=== PATIENT | male | born 1970 | race Caucasian/White ===

== ENCOUNTER 2021-06-06 09:11 | Inpatient (IN) | payer OTHER ==
[2021-06-06] MEDS ORDERED: ACETAMINOPHEN 325 MG TABLET (FP) PO PRN ×2 (09:46)
[2021-06-06] MEDS ORDERED: LORazepam 1 MG TABLET PO PRN (09:46)
[2021-06-06] MEDS ORDERED: IBUPROFEN 400 MG TABLET (FP) PO PRN (09:46)
[2021-06-06] MEDS ORDERED: MAGNESIUM HYDROX 2400MG/30ML ORAL SUSPENSION 30 ML CUP PO PRN (09:46)
[2021-06-06] MEDS ORDERED: LOPERAMIDE HCL 2 MG CAPSULE PO PRN (09:46)
[2021-06-06] MEDS ORDERED: ONDANSETRON *ODT* 4 MG TABLET SL PRN (09:46)
[2021-06-06] MEDS ORDERED: METHOCARBAMOL 500 MG TABLET PO PRN (09:46)
[2021-06-06] MEDS ORDERED: NICOTINE 10 MG CARTRIDGE (INHALER) IH PRN (09:46)
[2021-06-06] MEDS ORDERED: BISMUTH SUBSALICYLATE 524 MG/30 ML PO PRN (09:46)
[2021-06-06] MEDS ORDERED: MAGNESIUM CITRATE 300 ML BOTTLE PO PRN (09:46)
[2021-06-06] MEDS ORDERED: MAG HYDROX/AL HYDROX/SIMETH 30 ML UNIT-DOSE CUP PO PRN (09:46)
[2021-06-06] MEDS ORDERED: DICYCLOMINE HCL 10 MG CAPSULE PO PRN (09:46)
[2021-06-06] MEDS ORDERED: LORazepam 2 MG TABLET PO ONE (10:20)
[2021-06-06 10:21] VITALS: BMI 20.5
[2021-06-06] MEDS ORDERED: LORazepam 2 MG TABLET ONE (10:24)
[2021-06-06] MEDS ORDERED: ONDANSETRON *ODT* 4 MG TABLET ONE (10:38)
[2021-06-06] MEDS: PRENATAL VITAMINS W/ FOLIC ACID TABLET (FP) PO SCH (11:28)
[2021-06-06] MEDS: hydrOXYzine PAMOATE 25 MG CAPSULE (FP) PO SCH ×4 (11:29→22:48)
[2021-06-06] MEDS: NICOTINE 14 MG/24 HOURS TOPICAL PATCH TD SCH (11:39)
[2021-06-06] MEDS: LORazepam 2 MG TABLET PO SCH ×3 (11:49→22:49)
[2021-06-06 14:31] LABS: HEMATOCRIT 40.3 % (35.4-49); HEMOGLOBIN 13.5 GM/dL (11.7-16.9); MCH 36.8 pg (25.7-33.7); MCHC 33.5 g/dl (32.0-35.9); MEAN CELL VOLUME 109.8 fl (80-96); MEAN PLT VOLUME 8.6 fl (7.5-11.1); PLATELET COUNT 118 10^3/uL (134-434); RBC 3.67 M/mm3 (4.00-5.60); RDW 16.2 % (11.9-15.9); WHITE BLOOD COUNT 4.2 K/mm3 (4.0-10.0)
[2021-06-06 14:44] LABS: ALBUMIN 3.6 g/dl (3.4-5.0); CALCIUM 9.2 mg/dL (8.5-10.1)
[2021-06-06 14:45] LABS: BLOOD UREA NITROGEN 7.9 mg/dL (7-18)
[2021-06-06 14:47] LABS: CREATININE 0.9 mg/dL (0.55-1.3)
[2021-06-06 14:49] LABS: BILIRUBIN,TOTAL 1.7 mg/dL (0.2-1); TOT PROT 7.3 g/dl (6.4-8.2)
[2021-06-06] MEDS: THIAMINE HCL 100 MG TABLET (FP) PO SCH (22:48)
[2021-06-06] MEDS: PANTOPRAZOLE 20 MG TABLET PO SCH (22:48)
[2021-06-06] MEDS: levETIRAcetam 250 MG TABLET PO SCH (22:48)
[2021-06-06] MEDS: MELATONIN 5 MG TABLETS PO SCH (22:49)
[2021-06-07] MEDS: hydrOXYzine PAMOATE 25 MG CAPSULE (FP) PO SCH ×5 (05:38→22:14)
[2021-06-07] MEDS: LORazepam 2 MG TABLET PO SCH ×4 (05:38→22:14)
[2021-06-07] MEDS: PANTOPRAZOLE 20 MG TABLET PO SCH ×2 (10:06→22:14)
[2021-06-07] MEDS: PRENATAL VITAMINS W/ FOLIC ACID TABLET (FP) PO SCH (10:06)
[2021-06-07] MEDS: levETIRAcetam 250 MG TABLET PO SCH ×2 (10:06→22:14)
[2021-06-07] MEDS: NICOTINE 14 MG/24 HOURS TOPICAL PATCH TD SCH (10:07)
[2021-06-07] MEDS: ALBUTEROL SO4 HFA INHALER IH PRN ×2 (11:51→17:43)
[2021-06-07] MEDS: POTASSIUM CHLORIDE ORAL LIQUID 20 MEQ/15 ML PO SCH ×2 (11:51→22:13)
[2021-06-07] MEDS: BUDESONIDE/FORMETEROL FUMARATE 80/4.5 mcg INHALER IH SCH ×2 (14:44→22:13)
[2021-06-07] MEDS: MENTHOL/PHENOL 1 EACH UD MM PRN (17:41)
[2021-06-07] MEDS: THIAMINE HCL 100 MG TABLET (FP) PO SCH (22:14)
[2021-06-07] MEDS: MELATONIN 5 MG TABLETS PO SCH (22:14)
[2021-06-08] MEDS: hydrOXYzine PAMOATE 25 MG CAPSULE (FP) PO SCH ×5 (06:39→22:11)
[2021-06-08] MEDS: LORazepam 1 MG TABLET PO SCH ×4 (06:39→22:10)
[2021-06-08] MEDS: ALBUTEROL SO4 HFA INHALER IH PRN ×2 (09:35→17:28)
[2021-06-08] MEDS: PRENATAL VITAMINS W/ FOLIC ACID TABLET (FP) PO SCH (10:24)
[2021-06-08] MEDS: levETIRAcetam 250 MG TABLET PO SCH ×2 (10:24→22:10)
[2021-06-08] MEDS: POTASSIUM CHLORIDE ORAL LIQUID 20 MEQ/15 ML PO SCH ×2 (10:24→22:14)
[2021-06-08] MEDS: PANTOPRAZOLE 20 MG TABLET PO SCH ×2 (10:24→22:11)
[2021-06-08] MEDS: BUDESONIDE/FORMETEROL FUMARATE 80/4.5 mcg INHALER IH SCH ×2 (10:24→22:13)
[2021-06-08] MEDS: NICOTINE 14 MG/24 HOURS TOPICAL PATCH TD SCH (10:27)
[2021-06-08] MEDS: MENTHOL/PHENOL 1 EACH UD MM PRN ×2 (10:29→17:27)
[2021-06-08 12:19] LABS: CALCIUM 9.5 mg/dL (8.5-10.1)
[2021-06-08 12:21] LABS: ALBUMIN 3.1 g/dl (3.4-5.0); BLOOD UREA NITROGEN 10.9 mg/dL (7-18)
[2021-06-08 12:24] LABS: CREATININE 0.8 mg/dL (0.55-1.3)
[2021-06-08 12:25] LABS: BILIRUBIN,TOTAL 1.1 mg/dL (0.2-1); TOT PROT 6.2 g/dl (6.4-8.2)
[2021-06-08 16:08] LABS: SARS-CoV-2 NAA Not Detected (Not Detected)
[2021-06-08] MEDS: THIAMINE HCL 100 MG TABLET (FP) PO SCH (22:10)
[2021-06-08] MEDS: MELATONIN 5 MG TABLETS PO SCH (22:11)
[2021-06-09] MEDS ORDERED: LORazepam 0.5 MG TABLET PO PRN
[2021-06-09] MEDS: hydrOXYzine PAMOATE 25 MG CAPSULE (FP) PO SCH ×5 (05:51→22:10)
[2021-06-09] MEDS: LORazepam 0.5 MG TABLET PO SCH ×4 (05:51→22:10)
[2021-06-09] MEDS: BUDESONIDE/FORMETEROL FUMARATE 80/4.5 mcg INHALER IH SCH ×2 (10:33→22:13)
[2021-06-09] MEDS: PRENATAL VITAMINS W/ FOLIC ACID TABLET (FP) PO SCH (10:33)
[2021-06-09] MEDS: POTASSIUM CHLORIDE ORAL LIQUID 20 MEQ/15 ML PO SCH ×2 (10:33→22:10)
[2021-06-09] MEDS: levETIRAcetam 250 MG TABLET PO SCH ×2 (10:36→22:10)
[2021-06-09] MEDS: NICOTINE 14 MG/24 HOURS TOPICAL PATCH TD SCH (10:36)
[2021-06-09] MEDS: MENTHOL/PHENOL 1 EACH UD MM PRN ×2 (10:36→17:53)
[2021-06-09] MEDS: PANTOPRAZOLE 20 MG TABLET PO SCH ×2 (10:38→22:10)
[2021-06-09] MEDS: ALBUTEROL SO4 HFA INHALER IH PRN (17:54)
[2021-06-09] MEDS: THIAMINE HCL 100 MG TABLET (FP) PO SCH (22:10)
[2021-06-09] MEDS: MELATONIN 5 MG TABLETS PO SCH (22:10)
[2021-06-10] MEDS ORDERED: LORazepam 0.5 MG TABLET PO ONE (05:00)
[2021-06-10] MEDS: hydrOXYzine PAMOATE 25 MG CAPSULE (FP) PO SCH (05:21)
[2021-06-10 08:58] VITALS: BP 117/67; PULSE 103; TEMP 98.2
== END 2021-06-10 09:13 | disposition home or self-care (01) | DRG 775 ==
LOC: YASAS 09:11 → Y3N 09:58
PROVIDERS: ADMIT Allergy & Immunology; ATTEND Allergy & Immunology
PROC: HZ2ZZZZ Detoxification Services for Substance Abuse Treatment (ICD-10-PCS; principal; 2021-06-06)
DX: F10.230 Alcohol dependence with withdrawal, uncomplicated (principal); F17.210 Nicotine dependence, cigarettes, uncomplicated; G40.909 Epilepsy, unspecified, not intractable, without status epilepticus; J44.9 Chronic obstructive pulmonary disease, unspecified; K21.9 Gastro-esophageal reflux disease without esophagitis
CPT/HCPCS: 36415; 80053; 80177; 85027; 86780; 87811; 93005; 93010; C9803-CS; Q0162; U0003; U0005